=== PATIENT | female | born 1965 | race African-American/Black ===

== ENCOUNTER 2020-05-22 10:45 | Inpatient (IN) | payer OTHER ==
[2020-05-22 16:44] VITALS: BMI 29.1
[2020-05-29] MEDS ORDERED: BUPIVACAINE HCL/PF 0.5% (5 MG/ML) 30 ML VIAL IJ ONE (06:58)
[2020-05-29] MEDS ORDERED: MIDAZOLAM HCL 2 MG/2 ML SINGLE DOSE VIAL ONE ×3 (06:58→09:19)
[2020-05-29] MEDS ORDERED: PROPOFOL 20 ML ONE ×3 (08:03)
[2020-05-29] MEDS ORDERED: LIDOCAINE HCL/PF 2% SDV 5ML VIAL ONE (10:20)
[2020-05-29] MEDS ORDERED: TRANEXAMIC ACID 1000 MG/10 ML VIAL ONE (10:20)
[2020-05-29] MEDS ORDERED: ceFAZolin SODIUM 1 GM VIAL ONE (10:20)
[2020-05-29] MEDS ORDERED: SODIUM CHLORIDE 0.9% P/F 10 ML VIAL IJ ONE (10:20)
[2020-05-29] MEDS ORDERED: VANCOMYCIN 1,000 MG VIAL (RESTRICTED TO ID ONLY) ONE (10:20)
[2020-05-29] MEDS ORDERED: BENZOIN/ALOE VERA/STORAX/TOLU 58 ML BOTTLE ONE (10:52)
[2020-05-29] MEDS ORDERED: MAGNESIUM HYDROX 2400MG/30ML ORAL SUSPENSION 30 ML CUP PO PRN (11:08)
[2020-05-29] MEDS ORDERED: ONDANSETRON 4 MG/2 ML VIAL IVPUSH PRN ×2 (11:08→11:23)
[2020-05-29] MEDS ORDERED: MAG HYDROX/AL HYDROX/SIMETH 30 ML UNIT-DOSE CUP PO PRN (11:08)
[2020-05-29] MEDS ORDERED: LACTATED RINGERS SOLUTION 1,000 ML IV SCH (11:15)
[2020-05-29] MEDS ORDERED: ONDANSETRON 4 MG/2 ML VIAL ONE (11:28)
[2020-05-29] MEDS ORDERED: ACETAMINOPHEN 325 MG TABLET (FP) ONE (12:10)
[2020-05-29] MEDS ORDERED: KETOROLAC TROMETHAMINE 30 MG/1 ML VIAL ONE (12:10)
[2020-05-29] MEDS: KETOROLAC TROMETHAMINE 30 MG/1 ML VIAL IVPUSH ONE ×2 (12:12→12:52)
[2020-05-29] MEDS: ACETAMINOPHEN 325 MG TABLET (FP) PO SCH ×3 (12:15→17:43)
[2020-05-29] MEDS ORDERED: KETOROLAC TROMETHAMINE 30 MG/1 ML VIAL IM ONE (12:30)
[2020-05-29] MEDS: LACTATED RINGERS SOLUTION 1,000 ML IV SCH (12:52)
[2020-05-29] MEDS: oxyCODONE HCL 5 MG TABLET PO PRN (17:42)
[2020-05-29] MEDS: CEFAZOLIN 2 GM/D5W 2 GM/50 ML ML IVPB SCH ×2 (17:42→22:04)
[2020-05-29] MEDS: SENNOSIDES/DOCUSATE COMBO (SENNA PLUS) TABLET (UD) PO SCH (22:04)
[2020-05-29] MEDS: ASPIRIN COATED 81 MG TABLET.EC PO SCH (22:04)
[2020-05-29] MEDS: CELECOXIB 200 MG CAPSULE PO SCH (22:04)
[2020-05-30] MEDS: oxyCODONE HCL 5 MG TABLET PO PRN ×5 (00:28→20:31)
[2020-05-30] MEDS: ACETAMINOPHEN 325 MG TABLET (FP) PO SCH ×4 (00:29→17:50)
[2020-05-30] MEDS: CEFAZOLIN 2 GM/D5W 2 GM/50 ML ML IVPB SCH (03:22)
[2020-05-30 07:50] LABS: HEMATOCRIT 33.2 % (32.4-45.2); HEMOGLOBIN 10.9 GM/dl (10.7-15.3); MCH 27.6 pg (25.7-33.7); MCHC 32.8 g/dl (32.0-36.0); MEAN PLT VOLUME 7.1 fl (7.5-11.1); PLATELET COUNT 317 K/MM3 (134-434); RBC 3.96 M/mm3 (3.60-5.2); RDW 12.6 % (11.6-15.6); WHITE BLOOD COUNT 10.2 K/mm3 (4.0-10.8)
[2020-05-30 08:06] LABS: CALCIUM 8.6 mg/dl (8.5-10); CREATININE 0.6 mg/dl (0.55-1.3); POTASSIUM 3.5 mmol/L (3.5-5.1)
[2020-05-30] MEDS: SENNOSIDES/DOCUSATE COMBO (SENNA PLUS) TABLET (UD) PO SCH ×2 (09:33→21:18)
[2020-05-30] MEDS: CELECOXIB 200 MG CAPSULE PO SCH ×2 (09:33→21:18)
[2020-05-30] MEDS: ASPIRIN COATED 81 MG TABLET.EC PO SCH ×2 (09:33→21:18)
[2020-05-30] MEDS: PANTOPRAZOLE 40 MG TABLET PO SCH (09:33)
[2020-05-30] MEDS: HYDROCHLOROTHIAZIDE 12.5 MG CAPSULE (FP) PO SCH (09:33)
[2020-05-30] MEDS: LACTATED RINGERS SOLUTION 1,000 ML IV SCH (12:58)
[2020-05-30] MEDS ORDERED: ATORVASTATIN CA 10 MG TABLET (FP) PO SCH (22:00)
[2020-05-31] MEDS: oxyCODONE HCL 5 MG TABLET PO PRN ×2 (01:11→09:39)
[2020-05-31] MEDS: ACETAMINOPHEN 325 MG TABLET (FP) PO SCH ×3 (01:12→12:04)
[2020-05-31 08:02] LABS: HEMATOCRIT 34.7 % (32.4-45.2); HEMOGLOBIN 11.5 GM/dl (10.7-15.3); MCH 27.9 pg (25.7-33.7); MCHC 33.1 g/dl (32.0-36.0); MEAN CELL VOLUME 84.4 fl (80-96); MEAN PLT VOLUME 7.7 fl (7.5-11.1); PLATELET COUNT 323 K/MM3 (134-434); RBC 4.12 M/mm3 (3.60-5.2); WHITE BLOOD COUNT 10.9 K/mm3 (4.0-10.8)
[2020-05-31] MEDS: PANTOPRAZOLE 40 MG TABLET PO SCH (09:38)
[2020-05-31] MEDS: CELECOXIB 200 MG CAPSULE PO SCH (09:38)
[2020-05-31] MEDS: HYDROCHLOROTHIAZIDE 12.5 MG CAPSULE (FP) PO SCH (09:38)
[2020-05-31] MEDS: ASPIRIN COATED 81 MG TABLET.EC PO SCH (09:39)
[2020-05-31] MEDS: SENNOSIDES/DOCUSATE COMBO (SENNA PLUS) TABLET (UD) PO SCH (09:41)
[2020-05-31 11:39] VITALS: BP 101/72; PULSE 104; TEMP 99.7
== END 2020-05-31 18:02 | disposition home or self-care (01) | DRG 470 ==
LOC: FM/S 05-29 06:08
PROVIDERS: ADMIT Orthopaedic Surgery Adult Reconstructive Orthopaedic Surgery; ATTEND Orthopaedic Surgery Adult Reconstructive Orthopaedic Surgery
PROC: 0SRB0JZ Replacement of Left Hip Joint with Synthetic Substitute, Open Approach (ICD-10-PCS; principal; 2020-05-29 09:03)
DX: M16.12 Unilateral primary osteoarthritis, left hip (principal); I10 Essential (primary) hypertension; E78.5 Hyperlipidemia, unspecified
CPT/HCPCS: 36415; 73502-TC-LT-FY; 80048; 85027; 88305-TC; 88311-TC; 94760; 97010-GP; 97116-GP; 97161-GP